=== PATIENT | female | born 1980 | race Caucasian/White ===

== ENCOUNTER 2019-04-21 13:39 | Observation (INO) | payer OTHER ==
[~2019-04-21] VITALS: Ht 149 cm; Wt 57.2 kg
[2019-04-21] MEDS ORDERED: PREN-217 PO (14:56)
[2019-04-21 14:58] VITALS: BP 111/67
== END 2019-04-21 15:00 | disposition home or self-care (01) ==
LOC: 4S 13:39
PROVIDERS: ADMIT Obstetrics & Gynecology Obstetrics; ATTEND Obstetrics & Gynecology
DX: O46.93 Antepartum hemorrhage, unspecified, third trimester (principal); O48.0 Post-term pregnancy; Z3A.40 40 weeks gestation of pregnancy

== ENCOUNTER 2019-04-24 23:25 | Inpatient (IN) | payer OTHER ==
[~2019-04-24] VITALS: Ht 147.3 cm; Wt 56.7 kg
[~2019-04-24 23:25] MED LIST: PREN-217 PO
[2019-04-24] MEDS ORDERED: RINGERS SOLUTION,LACTATED 1,000 ML IV PRN (23:43)
[2019-04-24] MEDS ORDERED: OXYTOCIN 30 UNITS/LACT RINGERS 500 ML IV PRN (23:43)
[2019-04-24] MEDS ORDERED: FentaNYL CITRATE-PF 100 MCG/2 ML VIAL IVP PRN (23:45)
[2019-04-24] MEDS ORDERED: MISOPROSTOL 25 MCG TABLET PO ONE (23:45)
[2019-04-25 00:37] LABS: BASOPHILS % (AUTO) 0.6 % (0.0-2.0); EOSINOPHILS % (AUTO) 0.7 % (1.0-6.0); HEMATOCRIT 39.1 % (36-46); HEMOGLOBIN 13.4 g/dL (12.0-16.0); LYMPHOCYTES # (AUTO) 1.9 K/uL (1.0-4.8); LYMPHOCYTES % (AUTO) 27.3 % (22.0-44.0); MEAN CORPUSCULAR HEMOGLOBIN 34.3 pg (26.0-34.0); MEAN CORPUSCULAR HGB CONC 34.2 G/dL (31.0-37.0); MEAN CORPUSCULAR VOLUME 100 fL (80-100); MONOCYTES # (AUTO) 0.6 K/uL (0.1-1.0); MONOCYTES % (AUTO) 8.3 % (2.0-9.0); NEUTROPHILS # (AUTO) 4.5 K/uL (1.8-7.7); NEUTROPHILS % (AUTO) 63.1 % (40.0-70.0); PLATELET COUNT (AUTO)-OB 170 K/uL (150-450); RED CELL DISTRIBUTION WIDTH 12.1 % (11.5-14.5)
[2019-04-25 00:41] VITALS: BP 111/74
[2019-04-25 01:13] LABS: PLATELET MORPHOLOGY COMMENT GIANT PLTS PRESENT
[2019-04-25] MEDS ORDERED: MISOPROSTOL 25 MCG TABLET PO ONE ×2 (05:05→12:00)
[2019-04-25] MEDS ORDERED: OXYTOCIN 30 UNITS/LACT RINGERS 500 ML IV ONE (07:34)
[2019-04-25] MEDS ORDERED: LIDOCAINE/PF 1% 30 ML VIAL INJ PRN (07:45)
[2019-04-25] MEDS ORDERED: TERBUTALINE SULFATE 1 MG/ML VIAL SQ PRN (07:45)
[2019-04-25] MEDS ORDERED: METHYLERGONOVINE MALEATE 0.2 MG/ML VIAL IM PRN (07:45)
[2019-04-25] MEDS ORDERED: OXYGEN THERAPY IH SCH (08:00)
[2019-04-25] MEDS: RINGERS SOLUTION,LACTATED 1,000 ML IV SCH ×3 (08:19→22:23)
[2019-04-25] MEDS ORDERED: ROPIVACAINE HCL/PF 0.2% 100 ML ED ONE (21:45)
[2019-04-26] MEDS: RINGERS SOLUTION,LACTATED 1,000 ML IV SCH ×3 (03:51→14:21)
[2019-04-26] MEDS: ROPIVACAINE HCL/PF 0.2% 100 ML ED PRN ×2 (05:35→12:13)
[2019-04-26] MEDS ORDERED: ROPIVACAINE HCL/PF 0.2% 100 ML ED PRN (07:17)
[2019-04-26] MEDS ORDERED: ONDANSETRON HCL 4 MG/2 ML VIAL IVP PRN ×3 (07:30→14:45)
[2019-04-26] MEDS ORDERED: ONDANSETRON HCL 4 MG/2 ML VIAL IVP ONE (12:00)
[2019-04-26] MEDS ORDERED: DEXTROSE 5%-LACTATED RINGERS 1,000 ML IV ONE (12:00)
[2019-04-26] MEDS ORDERED: OXYTOCIN 10 UNITS/ML VIAL IM ONE (12:00)
[2019-04-26] MEDS ORDERED: DEXAMETHASONE SOD PHOS 4 MG/ML VIAL IVP ONE (12:00)
[2019-04-26] MEDS ORDERED: LIDOCAINE 2%/EPI 1:200,000/PF 20 ML VIAL ONE (14:10)
[2019-04-26] MEDS ORDERED: METOCLOPRAMIDE HCL 5 MG/ML 2 ML VIAL ONE (14:11)
[2019-04-26] MEDS ORDERED: RINGERS SOLUTION,LACTATED 1,000 ML IV ONE (14:11)
[2019-04-26] MEDS ORDERED: CITRIC ACID/SODIUM CITRATE 30 ML SOLUTION UDCUP ONE (14:11)
[2019-04-26] MEDS ORDERED: MORPHINE SULFATE/PF 0.5 MG/ML 10 ML AMP ONE (14:11)
[2019-04-26] MEDS ORDERED: ACETAMINOPHEN 1000 MG/ISO-OSM 100 ML IV ONE (14:11)
[2019-04-26] MEDS ORDERED: CITRIC ACID/SODIUM CITRATE 30 ML SOLUTION UDCUP PO ONE (14:15)
[2019-04-26] MEDS ORDERED: METOCLOPRAMIDE HCL 5 MG/ML 2 ML VIAL IVP ONE (14:15)
[2019-04-26] MEDS ORDERED: NALOXONE HCL 0.4 MG/ML VIAL IVP PRN (14:30)
[2019-04-26] MEDS ORDERED: MORPHINE SULFATE 10 MG/ML SYRINGE IVP PRN (14:30)
[2019-04-26] MEDS ORDERED: NALBUPHINE HCL 10 MG/ML VIAL IVP PRN ×2 (14:30)
[2019-04-26] MEDS ORDERED: FentaNYL CITRATE-PF 100 MCG/2 ML VIAL IVP PRN ×2 (14:30→14:45)
[2019-04-26] MEDS ORDERED: DiphenhydrAMINE HCL 50 MG/ML VIAL IVP PRN (14:30)
[2019-04-26] MEDS ORDERED: FentaNYL CITRATE-PF 100 MCG/2 ML VIAL ONE (15:22)
[2019-04-26] MEDS ORDERED: GLYCERIN/WITCH HAZEL LEAF 40 PADS JAR TP PRN (16:00)
[2019-04-26] MEDS ORDERED: OxyCODONE HCL/ACETAMINOPHEN 5-325 MG TABLET PO PRN ×2 (16:00)
[2019-04-26] MEDS: OXYTOCIN 20 UNITS/LACT RINGERS 1,000 ML IV SCH ×2 (17:00→21:05)
[2019-04-26] MEDS ORDERED: OXYGEN THERAPY IH SCH ×2 (20:00)
[2019-04-26] MEDS: KETOROLAC TROMETHAMINE 30 MG/ML VIAL IVP SCH (20:23)
[2019-04-26] MEDS: ACETAMINOPHEN 1000 MG/ISO-OSM 100 ML IV SCH (21:04)
[2019-04-27] MEDS: KETOROLAC TROMETHAMINE 30 MG/ML VIAL IVP SCH (03:24)
[2019-04-27] MEDS: ACETAMINOPHEN 1000 MG/ISO-OSM 100 ML IV SCH (03:24)
[2019-04-27] MEDS: DEXTROSE 5%-0.45% SODIUM CHL 1,000 ML IV SCH ×2 (03:44→11:29)
[2019-04-27 07:05] LABS: BASOPHILS % (AUTO) 0.3 % (0.0-2.0); EOSINOPHILS % (AUTO) 0.2 % (1.0-6.0); HEMATOCRIT 31.4 % (36-46); HEMOGLOBIN 10.9 g/dL (12.0-16.0); LYMPHOCYTES # (AUTO) 1.5 K/uL (1.0-4.8); LYMPHOCYTES % (AUTO) 11.2 % (22.0-44.0); MEAN CORPUSCULAR HGB CONC 34.6 G/dL (31.0-37.0); MEAN CORPUSCULAR VOLUME 101 fL (80-100); MONOCYTES # (AUTO) 0.8 K/uL (0.1-1.0); MONOCYTES % (AUTO) 5.9 % (2.0-9.0); NEUTROPHILS # (AUTO) 11.2 K/uL (1.8-7.7); NEUTROPHILS % (AUTO) 82.4 % (40.0-70.0); PLATELET COUNT (AUTO)-OB 116 K/uL (150-450); RED BLOOD CELL COUNT(AUTO) 3.11 MIL/uL (4.00-5.20); RED CELL DISTRIBUTION WIDTH 12.6 % (11.5-14.5)
[2019-04-27] MEDS: MAGNESIUM HYDROXIDE SUSPENSION 30 ML UDCUP PO SCH ×2 (08:30→20:47)
[2019-04-27] MEDS: IBUPROFEN 600 MG TABLET PO PRN (16:00)
[2019-04-28] MEDS: IBUPROFEN 600 MG TABLET PO PRN (07:46)
[2019-04-28] MEDS: MAGNESIUM HYDROXIDE SUSPENSION 30 ML UDCUP PO SCH ×2 (07:47→21:03)
[2019-04-29] MEDS ORDERED: PERCT PO (08:51)
[2019-04-29] MEDS ORDERED: IBUP-2071 PO (08:51)
[2019-04-29] MEDS ORDERED: DOCU-275 PO (08:52)
[2019-04-29] MEDS ORDERED: FERR-89 PO (08:53)
== END 2019-04-29 11:35 | disposition home or self-care (01) | DRG 788 ==
LOC: 4S 23:25 → OBSVTOIN 23:25 → 4S 04-26 17:00
PROVIDERS: ADMIT Obstetrics & Gynecology; ATTEND Obstetrics & Gynecology
PROC: 10D00Z1 Extraction of Products of Conception, Low, Open Approach (ICD-10-PCS; principal; 2019-04-26)
DX: O48.0 Post-term pregnancy (principal); Z3A.41 41 weeks gestation of pregnancy; O77.0 Labor and delivery complicated by meconium in amniotic fluid; O62.2 Other uterine inertia; Z37.0 Single live birth
CPT/HCPCS: 86850; 86900; 86901; J0131; J0690; J1100; J1885; J2274; J2405; J2590; J2765; J2795; J3010; J7120